=== PATIENT | male | born 1980 | race African-American/Black ===

== ENCOUNTER 2023-03-06 21:03 | Emergency (ER) | payer OTHER ==
[~2023-03-06] VITALS: Ht 182.9 cm; Wt 104.3 kg
[2023-03-06 21:26] VITALS: BP_SYST 157
--- NOTE | 2023-03-06 21:30 | NUR ---
Patient ambulatory to bed 4 for evaluation and treatment
--- NOTE | 2023-03-06 21:44 | NUR ---
FIRST CONTACT WITH PT. ASSESSMENT COMPLETED. AWAITING EVAL AND ORDERS.
[2023-03-06] MEDS ORDERED: BUPIVACAINE /PF 0.25% 30 ML VIAL INJ ONE (22:28)
--- NOTE | 2023-03-06 22:29 | NUR ---
AT BEDSIDE TO ADMINISTER BLOCKING NERVE MED
[2023-03-06] MEDS ORDERED: BUPIVACAINE /PF 0.25% 10 ML VIAL INJ ONE (22:30)
[2023-03-06] MEDS ORDERED: HYDR-3917 PO (23:28)
[2023-03-06] MEDS ORDERED: IBUP-1969 PO (23:28)
[2023-03-06 23:56] VITALS: BP_SYST 132
--- NOTE | 2023-03-07 | NUR ---
Patient given written and verbal discharge instructions and verbalizes understanding. ER MD ADAMS discussed with patient the results and treatment provided. Patient in stable condition. ID arm band removed. IV catheter removed intact and dressing applied, n Rx of NORCO given. Patient educated on pain management and to follow up with PMD. Pain Scale . Opportunity for questions provided and answered. Medication side effect fact sheet provided.
== END 2023-03-06 23:58 | disposition home or self-care (01) ==
LOC: SED 21:03
DX: K02.9 Dental caries, unspecified (principal); K08.89 Other specified disorders of teeth and supporting structures; Z79.899 Other long term (current) drug therapy
CPT/HCPCS: 99284; 64400; J3490

== ENCOUNTER 2023-03-09 03:46 | Emergency (ER) | payer OTHER ==
[~2023-03-09] VITALS: Ht 182.9 cm; Wt 103.0 kg
[~2023-03-09 03:46] MED LIST: HYDR-3917 PO; IBUP-1969 PO
[2023-03-09 03:53] VITALS: BP_SYST 159
[2023-03-09] MEDS ORDERED: BUPIVACAINE /PF 0.25% 10 ML VIAL INJ ONE (04:30)
[2023-03-09] MEDS ORDERED: BUPIVACAINE /PF 0.25% 30 ML VIAL INJ ONE (04:31)
== END 2023-03-09 05:13 | disposition home or self-care (01) ==
LOC: SED 03:46
DX: K02.9 Dental caries, unspecified (principal); K08.89 Other specified disorders of teeth and supporting structures; Z79.899 Other long term (current) drug therapy
CPT/HCPCS: 99284; 64400; J3490

== ENCOUNTER 2023-10-14 11:01 | Emergency (ER) | payer OTHER ==
[~2023-10-14] VITALS: Ht 182.9 cm; Wt 102.1 kg
[2023-10-14 11:10] VITALS: BP_SYST 155; PULSE 100; RESP 17; TEMP 99.2; O2SAT 100
[2023-10-14 12:11] LABS: INFLUENZA TYPE B NEGATIVE (NEGATIVE)
[2023-10-14 12:16] LABS: INFLUENZA TYPE A Positive (NEGATIVE)
[2023-10-14] MEDS ORDERED: OSEL75CA PO (12:23)
[2023-10-14 12:43] VITALS: BP_SYST 134; PULSE 76; RESP 17; TEMP 99.2; O2SAT 100
== END 2023-10-14 12:43 | disposition home or self-care (01) ==
LOC: SED 11:01
DX: J10.1 Influenza due to other identified influenza virus with other respiratory manifestations (principal); R05.9 Cough, unspecified; R50.9 Fever, unspecified; Z79.899 Other long term (current) drug therapy; Z20.822 Contact with and (suspected) exposure to COVID-19
CPT/HCPCS: 36415; 71046-TC; 99284

== ENCOUNTER 2024-03-02 10:42 | Emergency (ER) | payer OTHER ==
[~2024-03-02] VITALS: Ht 182.9 cm; Wt 102.1 kg
[~2024-03-02 10:42] MED LIST changes: +OSEL75CA PO
[2024-03-02 11:22] VITALS: BP_SYST 132; PULSE 66; RESP 18; TEMP 98.3; O2SAT 97
[2024-03-02 12:31] LABS: BASOPHILS # (AUTO) 0.1 K/uL (0.0-0.2); BASOPHILS % (AUTO) 0.9 % (0.0-2.0); EOSINOPHILS # (AUTO) 0.3 K/uL (0.0-0.4); EOSINOPHILS % (AUTO) 5.8 % (0.0-4.0); HEMATOCRIT 41.1 % (36-54); HEMOGLOBIN 14.1 g/dL (14.0-18.0); MEAN CORPUSCULAR HEMOGLOBIN 29 pg (27-31); MEAN CORPUSCULAR HGB CONC 34 % (32-36); MEAN CORPUSCULAR VOLUME 85 fL (79.0-98.0); MONOCYTES # (AUTO) 0.3 K/uL (0.0-1.0); MONOCYTES % (AUTO) 5.3 % (1.7-9.3); NEUTROPHILS # (AUTO) 2.8 K/uL (1.8-7.7); PLATELET COUNT (AUTO) 225 K/uL (130-430); RED BLOOD CELL COUNT(AUTO) 4.82 MIL/uL (4.2-6.2); RED CELL DISTRIBUTION WIDTH 13.5 % (9.0-15.0); WHITE BLOOD COUNT (AUTO) 5.5 K/uL (4.8-10.8)
[2024-03-02 12:47] LABS: PROTHROMBIN TIME 10.8 SECS (9.5-12.5)
[2024-03-02 13:01] LABS: ALANINE AMINOTRANSFERASE 19 U/L (12-78); ALBUMIN 3.6 g/dL (3.4-4.8); ANION GAP 12 (5-15); ASPARTATE AMINOTRANSFERASE 12 U/L (10-37); BILIRUBIN,DIRECT 0.1 mg/dL (0.0-0.3); CALCIUM 8.8 mg/dL (8.4-11.0); CARBON DIOXIDE 26 mmol/L (23-29); CHLORIDE 104 mmol/L (98-107); CREATININE 0.99 mg/dL (0.55-1.30); GFR AFRICAN AMERICAN 106 mL/min (>90); GLUCOSE 91 mg/dL (74-106); SODIUM SERUM 142 mmol/L (136-145); TOTAL BILIRUBIN 0.3 mg/dL (0.0-1.0); UREA NITROGEN, BLOOD 10 mg/dL (8-21)
[2024-03-02 13:05] LABS: ALCOHOL, BLOOD < 3 mg/dL (<10); GFR NON AFRICAN-AMERICAN 88 mL/min (>90)
[2024-03-02] MEDS: ONDANSETRON HCL 4 MG/2 ML VIAL IVP ONE (13:05)
[2024-03-02] MEDS: NACL 0.9% 1,000 ML IV ONE (13:36)
[2024-03-02 13:43] LABS: BILIRUBIN,URINE NEGATIVE (NEGATIVE); BLOOD, URINE NEGATIVE (NEGATIVE); CLARITY/URINE CLEAR (CLEAR); COLOR,URINE YELLOW (YELLOW); GLUCOSE,URINE NEGATIVE (NEGATIVE); KETONES,URINE NEGATIVE (NEGATIVE); LEUKOCYTE ESTERASE ,URINE NEGATIVE (NEGATIVE); NITRITE, URINE NEGATIVE (NEGATIVE); PH,URINE 6.5 (5.0-8.0); PROTEIN URINE NEGATIVE (NEGATIVE); UROBILINOGEN,URINE 0.2 (0.2-1.0)
[2024-03-02 13:57] LABS: BARBITURATE, URINE NEGATIVE (NEG <=200); BENZODIAZEPINE, URINE NEGATIVE (NEG <=150); CANNABINOID, URINE NEGATIVE (NEG <=50); COCAINE, URINE NEGATIVE (NEG <=150); METHAMPHETAMINES SCREEN,URINE NEGATIVE (NEG <=500); OPIATE, URINE NEGATIVE (NEG <=100); PHENCYCLIDINE SCREEN,URINE NEGATIVE (NEG <=25); UR TRICYCLIC ANTIDEPRESSANTS NEGATIVE (NEG <=300); URINE AMPHETAMINE NEGATIVE (NEG <=500); URINE METHADONE NEGATIVE (NEG <=200); URINE OXYCODONE SCREEN NEGATIVE (NEG <=100)
[2024-03-02] MEDS ORDERED: ONDA-8 TL (14:00)
[2024-03-02] MEDS ORDERED: MECL-225 PO (14:00)
[2024-03-02] MEDS ORDERED: LORA-843 PO (14:00)
[2024-03-02 14:15] VITALS: BP_SYST 149; PULSE 66; RESP 18; TEMP 98.3; O2SAT 97
== END 2024-03-02 14:00 | disposition home or self-care (01) ==
LOC: SED 10:42
DX: R42 Dizziness and giddiness (principal); R11.10 Vomiting, unspecified; R09.81 Nasal congestion; Z79.899 Other long term (current) drug therapy
CPT/HCPCS: 99285; 96374; 70450; 71045; 96361; 80307; 80076; 80048; 85025; 85610; 85730; 84484; 36415; 93005; 81003; 81001; G0482; J2405; J7030